=== PATIENT | male | born 1960 | race Caucasian/White ===

== ENCOUNTER 2018-04-01 11:00 | Emergency (ER) | payer OTHER ==
[2018-04-01 11:36] LABS: CREATININE 0.8 mg/dL (0.5-1.5); POTASSIUM 3.4 mmol/L (3.5-5.1)
[2018-04-01 11:41] LABS: ALBUMIN 2.4 g/dL (3.5-5.0); BILIRUBIN,TOTAL 1.6 mg/dL (0.2-1.0); TOTAL PROTEIN, SERUM 6.4 g/dL (6.0-8.3)
[2018-04-01 11:43] LABS: BASOPHILS % (AUTO) 1.1 % (0.0-5.0); EOSINOPHILS % (AUTO) 6.6 % (0.0-8.0); HEMATOCRIT 41.6 % (42-54); LYMPHOCYTES % (AUTO) 22.3 % (21.0-51.0); MEAN CORPUSCULAR HEMOGLOBIN 32.8 pg (27.0-33.0); MEAN CORPUSCULAR HGB CONC 32.8 g/dL (32.0-36.0); MEAN CORPUSCULAR VOLUME 99.8 fL (79-99); MONOCYTES % (AUTO) 13.4 % (3.0-13.0); NEUTROPHILS % (AUTO) 56.6 % (40.0-77.0); NUCLEATED RED BLOOD CELLS 0.2 % (0.0-0.19); PLATELET COUNT (AUTO) 63 K/uL (130-400); RED BLOOD CELL COUNT(AUTO) 4.16 MIL/uL (4.50-6.20); RED CELL DISTRIBUTION WIDTH 14.6 % (11.0-15.5)
[2018-04-01] MEDS ORDERED: IOHEXOL-350 75 ML VIAL IV ONE (11:52)
[2018-04-01 12:10] LABS: BASOPHILS % (MANUAL) 1 % (0-2); EOSINOPHILS % (MANUAL) 9 % (1-6); LYMPHOCYTES % (MANUAL) 17 % (22-44); MAN.DIFF COMMENT-IMPRESSION MANUAL DIFFERENTIAL; MONOCYTES % (MANUAL) 16 % (2-9); SEGMENTED NEUTROPHILS % 57 % (40-70)
[2018-04-01 13:06] LABS: APPEARANCE,URINE Clear (CLEAR); BILIRUBIN,URINE Negative (NEGATIVE); COLOR,URINE Yellow (YELLOW); GLUCOSE, URINE (UA) Negative (NEGATIVE); KETONES,URINE Negative (NEGATIVE); LEUKOCYTE ESTERASE ,URINE Small (NEGATIVE); NITRATE,URINE Negative (NEGATIVE); OCCULT BLOOD,URINE Small (NEGATIVE); PROTEIN,URINE Trace (NEGATIVE)
[2018-04-01] MEDS ORDERED: HYDROCODONE/ACETAMINOPHEN 5/325 MG TAB ONE (13:14)
[2018-04-01 13:16] LABS: BACTERIA,URINE Rare /HPF (None Seen); RBC,URINE 0-1 /HPF (0-1); SQUAMOUS EPITHELIAL CELL,UR Rare /HPF (0-2)
== END 2018-04-01 14:15 | disposition home or self-care (01) ==
LOC: EDH 11:00
DX: K42.9 Umbilical hernia without obstruction or gangrene (principal); K40.90 Unilateral inguinal hernia, without obstruction or gangrene, not specified as recurrent; K74.60 Unspecified cirrhosis of liver; R18.8 Other ascites
CPT/HCPCS: 36415; 74177; 80053; 81001; 85025; 99285; Q9967

== ENCOUNTER → 2018-05-05 | Outpatient (CLI) | payer OTHER | END | disposition home or self-care (01) | LOC: OIH 13:30 | PROVIDERS: ATTEND Family Medicine | DX: M51.36 Other intervertebral disc degeneration, lumbar region (principal); M48.061 Spinal stenosis, lumbar region without neurogenic claudication; M47.896 Other spondylosis, lumbar region; M25.78 Osteophyte, vertebrae | CPT/HCPCS: 72100 ==

== ENCOUNTER 2018-05-08 13:48 | Emergency (ER) | payer OTHER ==
[2018-05-08 15:00] LABS: BASOPHILS % (AUTO) 0.8 % (0.0-5.0); EOSINOPHILS % (AUTO) 4.7 % (0.0-8.0); HEMATOCRIT 36.6 % (42-54); MEAN CORPUSCULAR HEMOGLOBIN 34.5 pg (27.0-33.0); MEAN CORPUSCULAR HGB CONC 34.6 g/dL (32.0-36.0); MEAN CORPUSCULAR VOLUME 99.7 fL (79-99); MONOCYTES % (AUTO) 12.1 % (3.0-13.0); NEUTROPHILS % (AUTO) 62.4 % (40.0-77.0); NUCLEATED RED BLOOD CELLS 0.1 % (0.0-0.19); PLATELET COUNT (AUTO) 73 K/uL (130-400); RED BLOOD CELL COUNT(AUTO) 3.67 MIL/uL (4.50-6.20); RED CELL DISTRIBUTION WIDTH 14.3 % (11.0-15.5); WHITE BLOOD COUNT (AUTO) 3.3 K/uL (4.8-10.8)
[2018-05-08] MEDS ORDERED: ONDANSETRON HCL 4 MG/2 ML VIAL ONE (15:00)
[2018-05-08] MEDS ORDERED: SODIUM CHLORIDE 0.9% 1000ML 1,000 ML IV ONE (15:00)
[2018-05-08] MEDS ORDERED: MORPHINE SULFATE 4 MG/1ML SYG ONE ×2 (15:00→16:25)
[2018-05-08 15:11] LABS: APPEARANCE,URINE Clear (CLEAR); BILIRUBIN,URINE Small (NEGATIVE); COLOR,URINE Dark Yellow (YELLOW); GLUCOSE, URINE (UA) Negative (NEGATIVE); KETONES,URINE Negative (NEGATIVE); LEUKOCYTE ESTERASE ,URINE Trace (NEGATIVE); NITRATE,URINE Negative (NEGATIVE); OCCULT BLOOD,URINE Moderate (NEGATIVE); PH,URINE 5.5 (5.0-8.0); PROTEIN,URINE POS 2+ (NEGATIVE)
[2018-05-08 15:14] LABS: ALBUMIN 2.7 g/dL (3.5-5.0); BILIRUBIN,TOTAL 1.8 mg/dL (0.2-1.0)
[2018-05-08] MEDS ORDERED: IOHEXOL-350 75 ML VIAL IV ONE (15:15)
[2018-05-08 15:25] LABS: BACTERIA,URINE Rare /HPF (None Seen); SQUAMOUS EPITHELIAL CELL,UR Rare /HPF (0-2)
[2018-05-08 15:26] LABS: MUCUS,URINE Few LPF (None Seen)
== END 2018-05-08 18:16 | disposition home or self-care (01) ==
LOC: EEVIPCON 13:48 → EDH 13:48
DX: K42.9 Umbilical hernia without obstruction or gangrene (principal); N43.3 Hydrocele, unspecified; K74.60 Unspecified cirrhosis of liver; G89.29 Other chronic pain; R10.30 Lower abdominal pain, unspecified; Z88.1 Allergy status to other antibiotic agents
CPT/HCPCS: 36415; 74177; 76870; 80053; 81001; 83690; 85025; 96374; 96375; 96376; 99285; J2270 ×2; J2405; J7030; Q9967

== ENCOUNTER 2018-11-27 14:20 | Emergency (ER) | payer OTHER ==
[2018-11-27 15:12] LABS: BASOPHILS % (AUTO) 0.4 % (0.0-5.0); EOSINOPHILS % (AUTO) 1.9 % (0.0-8.0); HEMATOCRIT 28.5 % (42-54); LYMPHOCYTES % (AUTO) 11.1 % (21.0-51.0); MEAN CORPUSCULAR HEMOGLOBIN 32.3 pg (27.0-33.0); MEAN CORPUSCULAR HGB CONC 33.4 g/dL (32.0-36.0); MEAN CORPUSCULAR VOLUME 96.7 fL (79-99); MONOCYTES % (AUTO) 16.1 % (3.0-13.0); NEUTROPHILS % (AUTO) 70.5 % (40.0-77.0); PLATELET COUNT (AUTO) 62 K/uL (130-400); RED BLOOD CELL COUNT(AUTO) 2.95 MIL/uL (4.50-6.20); RED CELL DISTRIBUTION WIDTH 25.1 % (11.0-15.5); WHITE BLOOD COUNT (AUTO) 2.5 K/uL (4.8-10.8)
[2018-11-27 15:24] LABS: CREATININE 1.4 mg/dL (0.5-1.5); POTASSIUM 4.8 mmol/L (3.5-5.1)
[2018-11-27 15:29] LABS: ALBUMIN 3.7 g/dL (3.5-5.0); BILIRUBIN,TOTAL 3.6 mg/dL (0.2-1.0); TOTAL PROTEIN, SERUM 8.2 g/dL (6.0-8.3)
[2018-11-27 15:30] LABS: INR 1.85 (0.85-1.15); PARTIAL THROMBOPLASTIN TIME 41.2 SEC (26.3-35.5); PROTHROMBIN TIME 19.2 SEC (9.6-11.6)
[2018-11-27 15:33] LABS: BAND NEUTROPHILS % (MANUAL) 2 % (0-2); EOSINOPHILS % (MANUAL) 1 % (1-6); LYMPHOCYTES % (MANUAL) 13 % (22-44); MAN.DIFF COMMENT-IMPRESSION MANUAL DIFFERENTIAL; MONOCYTES % (MANUAL) 12 % (2-9); PLATELET MORPHOLOGY COMMENT DECREASED; SEGMENTED NEUTROPHILS % 72 % (40-70)
[2018-11-27] MEDS ORDERED: MORPHINE SULFATE 4 MG/1ML SYG ONE (16:14)
[2018-11-27] MEDS ORDERED: ONDANSETRON HCL 4 MG/2 ML VIAL ONE (16:14)
== END 2018-11-27 18:12 | disposition home or self-care (01) ==
LOC: EDH 14:20
DX: E86.0 Dehydration (principal); R53.1 Weakness; K74.60 Unspecified cirrhosis of liver; Z88.1 Allergy status to other antibiotic agents
CPT/HCPCS: 36415; 70450; 71045; 80053; 82140; 82550; 84484; 85025; 85610; 85730; 93005; 96361; 96374; 96375; 99285; J2270; J2405

== ENCOUNTER 2021-04-27 08:50 | Inpatient (IN) | payer MEDICAID ==
[~2021-04-27] VITALS: Ht 177.8 cm; Wt 83.2 kg
[2021-04-27] MEDS ORDERED: LACTATED RINGERS 1000ML 1,000 ML IV SCH ×2 (09:00→13:00)
[2021-04-27 09:18] LABS: BASOPHILS % (AUTO) 0.6 % (0.0-5.0); EOSINOPHILS % (AUTO) 4.3 % (0.0-8.0); HEMATOCRIT 34.5 % (42-54); MEAN CORPUSCULAR HEMOGLOBIN 31.6 pg (27.0-33.0); MEAN CORPUSCULAR HGB CONC 32.2 g/dL (32.0-36.0); MEAN CORPUSCULAR VOLUME 98.3 fL (79-99); MONOCYTES % (AUTO) 9.4 % (3.0-13.0); NEUTROPHILS % (AUTO) 75.2 % (40.0-77.0); PLATELET COUNT (AUTO) 101 K/uL (130-400); RED BLOOD CELL COUNT(AUTO) 3.51 MIL/uL (4.50-6.20); RED CELL DISTRIBUTION WIDTH 14.9 % (11.0-15.5); WHITE BLOOD COUNT (AUTO) 6.3 K/uL (4.8-10.8)
[2021-04-27] MEDS ORDERED: CEFTRIAXONE 1G VIAL ONE (09:29)
[2021-04-27 09:30] LABS: CREATININE 0.9 mg/dL (0.5-1.5); POTASSIUM 5.7 mmol/L (3.5-5.1)
[2021-04-27] MEDS ORDERED: OCTREOTIDE ACETATE 1,000 MCG in DEXTROSE 5%-WATER 195 ML IV SCH (09:30)
[2021-04-27] MEDS ORDERED: ONDANSETRON 4MG INJ IVP SCH (09:30)
[2021-04-27] MEDS ORDERED: PANTOPRAZOLE 40 MG/VIAL IVP SCH (09:30)
[2021-04-27] MEDS ORDERED: CEFTRIAXONE 1G VIAL 1 GM in 0.9%NACL 50ML 50 ML IV SCH (09:30)
[2021-04-27] MEDS ORDERED: OCTREOTIDE ACETATE 100 MCG/ML AMP IVP SCH (09:30)
[2021-04-27 09:31] LABS: INR 1.36 (0.85-1.15); PROTHROMBIN TIME 14.4 SEC (9.6-11.6)
[2021-04-27 09:32] LABS: PARTIAL THROMBOPLASTIN TIME 26.2 SEC (26.3-35.5)
[2021-04-27 09:34] LABS: ALBUMIN 2.5 g/dL (3.5-5.0); BILIRUBIN,TOTAL 1.5 mg/dL (0.2-1.0); MAGNESIUM 1.8 mg/dL (1.80-2.40); TOTAL PROTEIN, SERUM 6.5 g/dL (6.0-8.3)
[2021-04-27 09:56] LABS: B-TYPE NATRIURETIC PEPTIDE 6 pg/mL (0-100)
[2021-04-27] MEDS: PANTOPRAZOLE 40MG INJ 80 MG in 0.9%NACL 100ML 100 ML IV SCH ×2 (10:43→19:58)
[2021-04-27] MEDS ORDERED: ONDANSETRON 4MG INJ IV PRN (13:00)
[2021-04-27] MEDS ORDERED: CEFTRIAXONE 1G VIAL IVP SCH (13:00)
[2021-04-27] MEDS ORDERED: LACTULOSE 20 GM/30 ML UDCUP PO PRN (13:00)
[2021-04-27] MEDS ORDERED: MAGNESIUM 2GM PREMIX 50ML 50 ML IV PRN (13:00)
[2021-04-27] MEDS ORDERED: METOPROLOL TARTRATE 25 MG TAB PO ONE (13:00)
[2021-04-27] MEDS: MORPHINE 2 MG SYG IV PRN ×2 (13:38→23:30)
[2021-04-27 14:15] LABS: APPEARANCE,URINE Clear (CLEAR); BILIRUBIN,URINE Negative (NEGATIVE); COLOR,URINE Yellow (YELLOW); GLUCOSE, URINE (UA) Negative (NEGATIVE); KETONES,URINE Negative (NEGATIVE); LEUKOCYTE ESTERASE ,URINE Negative (NEGATIVE); NITRATE,URINE Negative (NEGATIVE); OCCULT BLOOD,URINE Small (NEGATIVE); PROTEIN,URINE POS 2+ mg/dL (NEGATIVE)
[2021-04-27 14:22] LABS: AMPHET/METH SCREEN,URINE NEGATIVE (NEGATIVE); BARBITURATE SCREEN, URINE NEGATIVE (NEGATIVE); BENZODIAZEPINES SCREEN,URINE NEGATIVE (NEGATIVE); CANNABINOID SCREEN,URINE NEGATIVE (NEGATIVE); COCAINE SCREEN,URINE POSITIVE (NEGATIVE); OPIATE SCREEN,URINE NEGATIVE (NEGATIVE); PHENCYCLIDINE SCREEN,URINE NEGATIVE (NEGATIVE)
[2021-04-27 14:38] LABS: BACTERIA,URINE Rare /HPF (None Seen); MUCUS,URINE Few LPF (None Seen); SQUAMOUS EPITHELIAL CELL,UR Few /HPF (0-2); WBC,URINE 0-1 /HPF (0-1)
[2021-04-27 14:58] LABS: HEMATOCRIT 31.4 % (42-54)
[2021-04-27] MEDS ORDERED: SPIRONOLACTONE 25 MG TAB PO SCH (15:30)
[2021-04-27] MEDS ORDERED: RIFAXIMIN 550 MG TABLET PO SCH (15:30)
[2021-04-27 15:38] LABS: CREATININE 0.9 mg/dL (0.5-1.5); POTASSIUM 5.8 mmol/L (3.5-5.1)
[2021-04-27] MEDS: LACTULOSE 20 GM/30 ML UDCUP PO ONE ×2 (17:20→17:26)
[2021-04-27] MEDS ORDERED: KAYEXALATE 15GM/60ML PO ONE (18:00)
[2021-04-27 20:59] LABS: HEMATOCRIT 30.1 % (42-54)
[2021-04-27] MEDS: RIFAXIMIN 550 MG TABLET PO SCH (21:00)
[2021-04-27] MEDS ORDERED: METOPROLOL TARTRATE 25 MG TAB PO SCH (21:00)
[2021-04-27] MEDS: LACTULOSE 20 GM/30 ML UDCUP PO SCH (22:23)
[2021-04-27 23:18] LABS: CHLORIDE,URINE RANDOM 140 mmol/L (110-250); CREATININE,URINE RANDOM 73 mg/dL (30-135); POTASSIUM,URINE RANDOM 51 mmol/L (25-125); SODIUM,URINE RANDOM 114 mmol/l (40-220)
[2021-04-28] VITALS (18 sets, daily range): BP systolic 79–130; BP diastolic 50–78
[2021-04-28] MEDS: LACTULOSE 20 GM/30 ML UDCUP PO SCH (06:00)
[2021-04-28 06:30] LABS: BASOPHILS % (AUTO) 1.1 % (0.0-5.0); EOSINOPHILS % (AUTO) 8.4 % (0.0-8.0); LYMPHOCYTES % (AUTO) 16.2 % (21.0-51.0); MEAN CORPUSCULAR HEMOGLOBIN 32.2 pg (27.0-33.0); MEAN CORPUSCULAR HGB CONC 32.5 g/dL (32.0-36.0); MEAN CORPUSCULAR VOLUME 99.1 fL (79-99); MONOCYTES % (AUTO) 9.7 % (3.0-13.0); NEUTROPHILS % (AUTO) 64.2 % (40.0-77.0); PLATELET COUNT (AUTO) 121 K/uL (130-400); RED BLOOD CELL COUNT(AUTO) 3.23 MIL/uL (4.50-6.20); RED CELL DISTRIBUTION WIDTH 15.3 % (11.0-15.5); WHITE BLOOD COUNT (AUTO) 7.6 K/uL (4.8-10.8)
[2021-04-28 06:54] LABS: THYROID STIMULATING HORMONE 0.35 uIU/mL (0.36-3.74); URIC ACID 6.9 mg/dL (2.6-7.2)
[2021-04-28 07:00] LABS: ALBUMIN 2.8 g/dL (3.5-5.0); BILIRUBIN,TOTAL 1.3 mg/dL (0.2-1.0); CREATININE 1.2 mg/dL (0.5-1.5); POTASSIUM 4.6 mmol/L (3.5-5.1); TOTAL PROTEIN, SERUM 6.6 g/dL (6.0-8.3)
[2021-04-28] MEDS ORDERED: LIDOCAINE HCL 1% 20 ML VIAL ONE (08:15)
[2021-04-28] MEDS ORDERED: FENTANYL CITRATE PF 50 MCG/1 ML 2ML VIAL ONE (08:15)
[2021-04-28] MEDS ORDERED: PROPOFOL 10 MG/ML 20ML VIAL IV ONE ×2 (08:15)
[2021-04-28] MEDS ORDERED: PHENYLEPHRINE HCL 10 MG/ML 1ML VIAL IV ONE (08:29)
[2021-04-28] MEDS ORDERED: PANTOPRAZOLE 40MG INJ 80 MG in 0.9%NACL 100ML 100 ML IV SCH (09:00)
[2021-04-28] MEDS ORDERED: SPIRONOLACTONE 25 MG TAB PO SCH (09:00)
[2021-04-28] MEDS: RIFAXIMIN 550 MG TABLET PO SCH (09:26)
[2021-04-28 12:02] LABS: HEMATOCRIT 26.7 % (42-54)
[2021-04-28] MEDS ORDERED: LACT10SO9 PO (12:03)
[2021-04-28] MEDS ORDERED: SPIR25TA6 PO (12:03)
== END 2021-04-28 13:30 | disposition home or self-care (01) | DRG 253 ==
LOC: EDH 08:50 → EDHIP 08:51 → 3CH 04-28 02:23
PROVIDERS: ADMIT Internal Medicine; ATTEND Internal Medicine
PROC: 0DJ08ZZ Inspection of Upper Intestinal Tract, Via Natural or Artificial Opening Endoscopic (ICD-10-PCS; principal; 2021-04-28)
DX: K92.2 Gastrointestinal hemorrhage, unspecified (principal); N17.9 Acute kidney failure, unspecified; K76.6 Portal hypertension; E83.42 Hypomagnesemia; E87.5 Hyperkalemia; D62 Acute posthemorrhagic anemia; K74.60 Unspecified cirrhosis of liver; K31.89 Other diseases of stomach and duodenum; F14.90 Cocaine use, unspecified, uncomplicated; F12.90 Cannabis use, unspecified, uncomplicated; G89.29 Other chronic pain; Z79.899 Other long term (current) drug therapy; Z82.49 Family history of ischemic heart disease and other diseases of the circulatory system; Z82.0 Family history of epilepsy and other diseases of the nervous system; Z83.3 Family history of diabetes mellitus; Z82.5 Family history of asthma and other chronic lower respiratory diseases; Z80.9 Family history of malignant neoplasm, unspecified; Z82.3 Family history of stroke; Z20.822 Contact with and (suspected) exposure to COVID-19
CPT/HCPCS: 36415; 43235; 76870; 80048; 80053; 80305; 81001; 82140; 82270; 82436; 82570; 83605; 83735; 83880; 83935; 84132; 84133; 84300; 84443; 84550; 85014; 85018; 85025; 85610; 85730; 86850; 86900; 86901; 87635; 93005; A4606; C9113; G0378; J0696; J2354; J2370; J2405; J2704; J3010; J3475; J7030; J7060

== ENCOUNTER → 2022-09-09 | Outpatient (CLI) | payer MEDICAID ==
[~2022-09-09] MED LIST: LACT10SO9 PO; SPIR25TA6 PO
== END | disposition home or self-care (01) ==
LOC: RAH 08-27 09:16
PROVIDERS: ATTEND Internal Medicine Gastroenterology
DX: K70.31 Alcoholic cirrhosis of liver with ascites (principal); K80.20 Calculus of gallbladder without cholecystitis without obstruction
CPT/HCPCS: 76700; 93975

== ENCOUNTER 2022-10-22 13:08 | Observation (INO) | payer MEDICAID ==
[~2022-10-22] VITALS: Ht 177.8 cm; Wt 86.9 kg
[2022-10-22] MEDS ORDERED: LIDOCAINE HCL 1% 20 ML VIAL ONE (15:29)
[2022-10-22] MEDS ORDERED: SODIUM BICARB 50MEQ 50ML VIAL 50 ML ONE (15:29)
[2022-10-22] MEDS ORDERED: ALBUMIN (HUMAN) 25% 200 ML IV ONE (15:29)
[2022-10-22 16:56] LABS: BASOPHILS % (AUTO) 0.4 % (0.0-5.0); EOSINOPHILS % (AUTO) 1.1 % (0.0-8.0); HEMATOCRIT 28.8 % (42-54); LYMPHOCYTES % (AUTO) 4.7 % (21.0-51.0); MEAN CORPUSCULAR VOLUME 90.9 fL (79-99); MONOCYTES % (AUTO) 19.6 % (3.0-13.0); NEUTROPHILS % (AUTO) 73.7 % (40.0-77.0); PLATELET COUNT (AUTO) 105 K/uL (130-400); RED BLOOD CELL COUNT(AUTO) 3.17 MIL/uL (4.50-6.20); RED CELL DISTRIBUTION WIDTH 14.6 % (11.0-15.5); WHITE BLOOD COUNT (AUTO) 5.6 K/uL (4.8-10.8)
[2022-10-22 17:04] LABS: BODY FLUID RBC 9769 /cu. mm.; BODY FLUID WBC 400 /cu. mm.
[2022-10-22 17:05] LABS: APPEARANCE BODY FLUID CLOUDY (CLEAR); COLOR,BODY FLUID RED (LT YELLOW); SPECIMENTYPE,BODY FLUID ASCITES; TOTAL VOLUME,BODY FLUID 9000 mL
[2022-10-22 17:07] LABS: INR 1.56 (0.85-1.15); PROTHROMBIN TIME 16.6 SEC (9.6-11.6)
[2022-10-22 17:09] LABS: PARTIAL THROMBOPLASTIN TIME 34.8 SEC (26.3-35.5)
[2022-10-22 17:10] LABS: ALBUMIN 2.2 g/dL (3.5-5.0); CREATININE 1.2 mg/dL (0.5-1.5)
[2022-10-22 17:13] LABS: POTASSIUM 2.6 mmol/L (3.5-5.1)
[2022-10-22 17:23] LABS: BF LYMPHOCYTE 3 %; BF MONOCYTE 11 %
[2022-10-22] MEDS ORDERED: POTASSIUM CHLORIDE 10MEQ/100ML 10 MEQ/100 ML ML IV SCH (17:30)
[2022-10-22] MEDS ORDERED: POTASSIUM BICARB/CIT AC 25 MEQ TABLET.EFF PO ONE (17:30)
[2022-10-22] MEDS ORDERED: MORPHINE 2 MG SYG IV PRN (18:30)
[2022-10-22] MEDS ORDERED: POTASSIUM CHLORIDE 20MEQ/100ML 100 ML IV PRN (18:30)
[2022-10-22] MEDS ORDERED: ACETAMINOPHEN 325 MG TAB PO PRN ×2 (18:30)
[2022-10-22] MEDS ORDERED: LIDOCAINE HCL-MPF 1% 2ML VIAL IV PRN (18:30)
[2022-10-22] MEDS ORDERED: ONDANSETRON 4MG INJ IV PRN (18:30)
[2022-10-22] MEDS ORDERED: MAGNESIUM 2GM PREMIX 50ML 50 ML IV PRN (18:30)
[2022-10-22] MEDS ORDERED: KCL 20 MEQ ERTAB PO PRN (18:30)
[2022-10-22] MEDS: LACTULOSE 20 GM/30 ML UDCUP PO SCH (21:00)
[2022-10-22 21:44] LABS: APPEARANCE,URINE CLEAR (CLEAR); BILIRUBIN,URINE 0.5 mg/dL (NEGATIVE); COLOR,URINE YELLOW (YELLOW); GLUCOSE, URINE (UA) NEGATIVE (NEGATIVE); KETONES,URINE NEGATIVE (NEGATIVE); LEUKOCYTE ESTERASE ,URINE NEGATIVE Leu/uL (NEGATIVE); NITRATE,URINE NEGATIVE (NEGATIVE); OCCULT BLOOD,URINE MODERATE (NEGATIVE); PROTEIN,URINE 50 mg/dL (NEGATIVE)
[2022-10-22 21:59] LABS: BACTERIA,URINE RARE /HPF (None Seen); HYALINE CASTS, URINE 26-50 /LPF (0-1 /LPF); MUCUS,URINE RARE LPF (None Seen); SQUAMOUS EPITHELIAL CELL,UR RARE /HPF (0-2); YEAST,URINE BUDDING FEW /HPF (None Seen)
[2022-10-22 22:25] VITALS: BP 128/98
[2022-10-22] MEDS ORDERED: FURO40TA5 PO (22:31)
[2022-10-22] MEDS ORDERED: LACT10SO9 PO (22:31)
[2022-10-22] MEDS ORDERED: RIFA550T PO (22:31)
[2022-10-22] MEDS: POTASSIUM CHLORIDE 10% ELIXIR 20 MEQ/15 ML UDCUP PO PRN ×2 (22:51→23:03)
[2022-10-22] MEDS: MORPHINE 4 MG SYG IV PRN (23:03)
[2022-10-23] MEDS: MORPHINE 4 MG SYG IV PRN (03:25)
[2022-10-23 03:40] VITALS: BP 132/69
[2022-10-23 05:14] LABS: BASOPHILS % (AUTO) 0.4 % (0.0-5.0); EOSINOPHILS % (AUTO) 3.2 % (0.0-8.0); HEMATOCRIT 37.7 % (42-54); LYMPHOCYTES % (AUTO) 8.7 % (21.0-51.0); MEAN CORPUSCULAR HEMOGLOBIN 30.1 pg (27.0-33.0); MEAN CORPUSCULAR HGB CONC 32.9 g/dL (32.0-36.0); MEAN CORPUSCULAR VOLUME 91.5 fL (79-99); MONOCYTES % (AUTO) 17.3 % (3.0-13.0); NEUTROPHILS % (AUTO) 68.9 % (40.0-77.0); PLATELET COUNT (AUTO) 182 K/uL (130-400); RED BLOOD CELL COUNT(AUTO) 4.12 MIL/uL (4.50-6.20); RED CELL DISTRIBUTION WIDTH 14.9 % (11.0-15.5); WHITE BLOOD COUNT (AUTO) 6.9 K/uL (4.8-10.8)
[2022-10-23 05:27] LABS: CREATININE 1.1 mg/dL (0.5-1.5); MAGNESIUM 2.4 mg/dL (1.80-2.40); PHOSPHORUS 2.1 mg/dL (2.5-4.9); POTASSIUM 4.2 mmol/L (3.5-5.1)
[2022-10-23 07:10] VITALS: BP 113/69
[2022-10-23] MEDS ORDERED: ACYCLOVIR OINTMENT 30GM TP SCH (09:00)
[2022-10-23] MEDS: LACTULOSE 20 GM/30 ML UDCUP PO SCH (09:00)
[2022-10-23] MEDS ORDERED: FAMOTIDINE 20MG TAB PO SCH (09:00)
[2022-10-23] MEDS ORDERED: ACYC15OI7 TP (09:14)
== END 2022-10-23 11:50 | disposition home or self-care (01) ==
LOC: EDH 13:08 → INTOOBSV 13:09 → EDHIP 13:09 → 4BH 22:10
PROVIDERS: ADMIT Internal Medicine; ATTEND Internal Medicine
DX: E87.6 Hypokalemia (principal); Z20.822 Contact with and (suspected) exposure to COVID-19; K70.30 Alcoholic cirrhosis of liver without ascites; D64.9 Anemia, unspecified; E11.9 Type 2 diabetes mellitus without complications; E87.1 Hypo-osmolality and hyponatremia; B02.9 Zoster without complications; E43 Unspecified severe protein-calorie malnutrition; E66.9 Obesity, unspecified; F14.90 Cocaine use, unspecified, uncomplicated; R23.8 Other skin changes; Z51.5 Encounter for palliative care; Z79.899 Other long term (current) drug therapy
CPT/HCPCS: 49083; 99284; 96365; 96367; 96366 ×2; 96375; 87635; 83735 ×2; 80053; 82140; 83690; 85025 ×2; 89051; 85610; 85730; 87040 ×2; 87205; 81001; 36415 ×2; 96376 ×2; 84132; 87071; 84100; 80048; P9046; J3475; J3490; J2405; J2270 ×2; C1729; G0378

== ENCOUNTER 2022-11-28 17:04 | Inpatient (IN) | payer MEDICAID ==
[~2022-11-28] VITALS: Ht 177.8 cm; Wt 103.6 kg
[~2022-11-28 17:04] MED LIST changes: +ACYC15OI7 TP; +FURO40TA5 PO; +RIFA550T PO
[2022-11-28 18:30] LABS: BASOPHILS % (AUTO) 1.4 % (0.0-5.0); EOSINOPHILS % (AUTO) 6.9 % (0.0-8.0); HEMATOCRIT 34.3 % (42-54); LYMPHOCYTES % (AUTO) 11.7 % (21.0-51.0); MEAN CORPUSCULAR HEMOGLOBIN 29.4 pg (27.0-33.0); MEAN CORPUSCULAR HGB CONC 32.1 g/dL (32.0-36.0); MEAN CORPUSCULAR VOLUME 91.7 fL (79-99); NEUTROPHILS % (AUTO) 67.7 % (40.0-77.0); PLATELET COUNT (AUTO) 74 K/uL (130-400); RED BLOOD CELL COUNT(AUTO) 3.74 MIL/uL (4.50-6.20); RED CELL DISTRIBUTION WIDTH 17.3 % (11.0-15.5); WHITE BLOOD COUNT (AUTO) 3.5 K/uL (4.8-10.8)
[2022-11-28 18:40] LABS: INR 1.31 (0.85-1.15); PROTHROMBIN TIME 14.1 SEC (9.6-11.6)
[2022-11-28 18:45] LABS: CREATININE 1.1 mg/dL (0.5-1.5); POTASSIUM 3.1 mmol/L (3.5-5.1)
[2022-11-28 18:53] LABS: B-TYPE NATRIURETIC PEPTIDE 66 pg/mL (0-100)
[2022-11-28 18:56] LABS: ALBUMIN 2.3 g/dL (3.5-5.0); TOTAL PROTEIN, SERUM 6.9 g/dL (6.0-8.3)
[2022-11-28] MEDS ORDERED: LACTULOSE 20 GM/30 ML UDCUP PO PRN (19:30)
[2022-11-28] MEDS ORDERED: ONDANSETRON 4MG INJ IV PRN (19:30)
[2022-11-28] MEDS ORDERED: KCL 20 MEQ ERTAB PO ONE (19:30)
[2022-11-28] MEDS: FUROSEMIDE 40MG VIAL IV SCH (20:13)
[2022-11-28] MEDS: MORPHINE 2 MG SYG IVP PRN (20:15)
[2022-11-28] MEDS: PANTOPRAZOLE 40 MG TAB DR PO SCH (21:17)
[2022-11-28 21:50] VITALS: BP 121/61
[2022-11-29] VITALS: BP 143/92
[2022-11-29] MEDS: MORPHINE 2 MG SYG IVP PRN ×2 (02:49→20:15)
[2022-11-29 04:00] VITALS: BP 154/78
[2022-11-29 08:00] VITALS: BP 139/77
[2022-11-29] MEDS ORDERED: POTASSIUM CHLORIDE 10% ELIXIR 20 MEQ/15 ML UDCUP PO PRN (08:00)
[2022-11-29] MEDS ORDERED: POTASSIUM CHLORIDE 20MEQ/100ML 100 ML IV PRN (08:00)
[2022-11-29] MEDS: FUROSEMIDE 40MG VIAL IV SCH ×2 (08:15→20:15)
[2022-11-29] MEDS: PANTOPRAZOLE 40 MG TAB DR PO SCH ×3 (08:15→20:30)
[2022-11-29] MEDS ORDERED: ALBUMIN (HUMAN) 25% 200 ML IV SCH (10:00)
[2022-11-29 11:14] LABS: MAGNESIUM 1.5 mg/dL (1.80-2.40); POTASSIUM 3.7 mmol/L (3.5-5.1)
[2022-11-29] MEDS: KCL 20 MEQ ERTAB PO PRN (11:18)
[2022-11-29] MEDS: MAGNESIUM 2GM PREMIX 50ML 50 ML IV PRN (11:19)
[2022-11-29 11:36] VITALS: BP 118/64
[2022-11-29] MEDS ORDERED: ALBUMIN (HUMAN) 25% 300 ML IV SCH (12:00)
[2022-11-29 14:33] LABS: BODY FLUID RBC 895 /cu. mm.; BODY FLUID WBC 50 /cu. mm.
[2022-11-29 14:37] LABS: APPEARANCE BODY FLUID CLOUDY (CLEAR); COLOR,BODY FLUID YELLOW (LT YELLOW); SPECIMENTYPE,BODY FLUID ASCITES
[2022-11-29 14:38] LABS: TOTAL VOLUME,BODY FLUID 13000 mL
[2022-11-29 16:00] VITALS: BP 126/74
[2022-11-29 16:47] LABS: BF LYMPHOCYTE 45 %; BF MONOCYTE 13 %
[2022-11-29 20:00] VITALS: BP 134/78
[2022-11-30] VITALS (7 sets, daily range): BP systolic 107–131; BP diastolic 69–87
[2022-11-30] MEDS: MORPHINE 2 MG SYG IVP PRN ×2 (01:41→10:30)
[2022-11-30] MEDS: FUROSEMIDE 40MG VIAL IV SCH ×2 (07:08→19:39)
[2022-11-30] MEDS: PANTOPRAZOLE 40 MG TAB DR PO SCH ×2 (09:00→19:39)
[2022-11-30 09:15] LABS: HEMATOCRIT 25.5 % (42-54); MEAN CORPUSCULAR HGB CONC 32.2 g/dL (32.0-36.0); MEAN CORPUSCULAR VOLUME 93.4 fL (79-99); PLATELET COUNT (AUTO) 67 K/uL (130-400); RED BLOOD CELL COUNT(AUTO) 2.73 MIL/uL (4.50-6.20); RED CELL DISTRIBUTION WIDTH 17.8 % (11.0-15.5); WHITE BLOOD COUNT (AUTO) 4.1 K/uL (4.8-10.8)
[2022-11-30 09:24] LABS: POTASSIUM 3.6 mmol/L (3.5-5.1)
[2022-11-30 09:29] LABS: ALBUMIN 2.4 g/dL (3.5-5.0); MAGNESIUM 1.7 mg/dL (1.80-2.40); TOTAL PROTEIN, SERUM 5.6 g/dL (6.0-8.3)
[2022-11-30 10:26] LABS: BAND NEUTROPHILS % (MANUAL) 3 % (0-2); BASOPHILS % (MANUAL) 3 % (0-2); EOSINOPHILS % (MANUAL) 6 % (1-6); LYMPHOCYTES % (MANUAL) 7 % (22-44); MONOCYTES % (MANUAL) 7 % (2-9); SEGMENTED NEUTROPHILS % 74 % (40-70)
[2022-11-30 10:27] LABS: MAN.DIFF COMMENT-IMPRESSION MANUAL DIFFERENTIAL; PLATELET MORPHOLOGY COMMENT DECREASED
[2022-12-01 04:00] VITALS: BP 107/69
[2022-12-01] MEDS: MORPHINE 2 MG SYG IVP PRN ×3 (04:39→20:59)
[2022-12-01] MEDS: FUROSEMIDE 40MG VIAL IV SCH ×2 (06:51→21:03)
[2022-12-01 07:58] VITALS: BP 127/72
[2022-12-01] MEDS: PANTOPRAZOLE 40 MG TAB DR PO SCH ×2 (09:00→21:02)
[2022-12-01 12:00] VITALS: BP 129/81
[2022-12-01 16:00] VITALS: BP 127/83
[2022-12-01 19:00] VITALS: BP 123/78
[2022-12-01 23:49] VITALS: BP 159/79
[2022-12-02] MEDS: MORPHINE 2 MG SYG IVP PRN ×2 (01:38→06:53)
[2022-12-02 04:39] VITALS: BP 125/73
[2022-12-02 05:40] LABS: MAGNESIUM 1.9 mg/dL (1.80-2.40); POTASSIUM 3.3 mmol/L (3.5-5.1)
[2022-12-02] MEDS: KCL 20 MEQ ERTAB PO PRN ×2 (06:56→09:14)
[2022-12-02] MEDS: MAGNESIUM 2GM PREMIX 50ML 50 ML IV PRN (06:57)
[2022-12-02 07:27] LABS: BASOPHILS % (AUTO) 1.4 % (0.0-5.0); EOSINOPHILS % (AUTO) 9.7 % (0.0-8.0); HEMATOCRIT 22.8 % (42-54); LYMPHOCYTES % (AUTO) 13.1 % (21.0-51.0); MEAN CORPUSCULAR HEMOGLOBIN 30.3 pg (27.0-33.0); MEAN CORPUSCULAR VOLUME 94.6 fL (79-99); NEUTROPHILS % (AUTO) 59.5 % (40.0-77.0); PLATELET COUNT (AUTO) 69 K/uL (130-400); RED BLOOD CELL COUNT(AUTO) 2.41 MIL/uL (4.50-6.20); RED CELL DISTRIBUTION WIDTH 18.7 % (11.0-15.5); WHITE BLOOD COUNT (AUTO) 3.5 K/uL (4.8-10.8)
[2022-12-02 08:00] VITALS: BP 125/76
[2022-12-02] MEDS: PANTOPRAZOLE 40 MG TAB DR PO SCH (09:14)
[2022-12-02] MEDS: FUROSEMIDE 40MG VIAL IV SCH (09:14)
== END 2022-12-02 11:20 | disposition home or self-care (01) | DRG 280 ==
LOC: EDH 17:04 → EDHIP 17:05 → 3BH 21:47
PROVIDERS: ADMIT Hospitalist; ATTEND Hospitalist
DX: K70.31 Alcoholic cirrhosis of liver with ascites (principal); D64.9 Anemia, unspecified; N49.2 Inflammatory disorders of scrotum; N50.89 Other specified disorders of the male genital organs; E87.6 Hypokalemia; E11.9 Type 2 diabetes mellitus without complications; R60.1 Generalized edema; Z91.199 Patient's noncompliance with other medical treatment and regimen due to unspecified reason; R14.0 Abdominal distension (gaseous); R60.0 Localized edema
CPT/HCPCS: 36415; 49083; 71045; 80053; 82140; 82550; 83735; 83874; 83880; 84132; 84484; 85025; 85610; 85730; 87071; 87205; 89051; 99291; C1729; G0378; J1940; J2405; J3475; P9046

== ENCOUNTER 2022-12-09 10:10 | Emergency (ER) | payer MEDICAID ==
[~2022-12-09] VITALS: Ht 177.8 cm; Wt 86.2 kg
[~2022-12-09 10:10] MED LIST changes: -ACYC15OI7 TP
[2022-12-09 10:33] LABS: BASOPHILS % (AUTO) 1.1 % (0.0-5.0); EOSINOPHILS % (AUTO) 6.1 % (0.0-8.0); HEMATOCRIT 25.6 % (42-54); LYMPHOCYTES % (AUTO) 7.6 % (21.0-51.0); MEAN CORPUSCULAR HGB CONC 32.4 g/dL (32.0-36.0); MEAN CORPUSCULAR VOLUME 92.4 fL (79-99); NEUTROPHILS % (AUTO) 71.8 % (40.0-77.0); PLATELET COUNT (AUTO) 79 K/uL (130-400); RED BLOOD CELL COUNT(AUTO) 2.77 MIL/uL (4.50-6.20); WHITE BLOOD COUNT (AUTO) 2.8 K/uL (4.8-10.8)
[2022-12-09 10:45] LABS: CARBON DIOXIDE 32 mmol/L (21-32); CHLORIDE 102 mmol/L (101-111); CREATININE 1.1 mg/dL (0.5-1.5); GLOMERULAR FILTR. RATE CALC 77 mL/min (>90); GLUCOSE,RANDOM 132 mg/dL (70-105); POTASSIUM 3.1 mmol/L (3.5-5.1); SODIUM SERUM 138 mmol/L (136-145); UREA NITROGEN, BLOOD 24 mg/dL (7-18)
[2022-12-09 10:47] LABS: INR 1.27 (0.85-1.15); PROTHROMBIN TIME 13.7 SEC (9.6-11.6)
[2022-12-09] MEDS ORDERED: LIDOCAINE HCL 1% 20 ML VIAL ONE (10:48)
[2022-12-09] MEDS ORDERED: SODIUM BICARB 50MEQ 50ML VIAL 50 ML ONE (10:48)
[2022-12-09 10:49] LABS: PARTIAL THROMBOPLASTIN TIME 28.8 SEC (26.3-35.5)
[2022-12-09] MEDS ORDERED: ALBUMIN (HUMAN) 25% 300 ML IV ONE (10:49)
[2022-12-09 10:50] LABS: ALANINE AMINOTRANSFERASE 27 U/L (12-78); ALBUMIN 2.5 g/dL (3.5-5.0); ASPARTATE AMINOTRANSFERASE 45 U/L (10-37); TOTAL PROTEIN, SERUM 6.5 g/dL (6.0-8.3)
[2022-12-09 10:54] LABS: EOSINOPHILS % (MANUAL) 1 % (1-6); LYMPHOCYTES % (MANUAL) 6 % (22-44); MONOCYTES % (MANUAL) 14 % (2-9); SEGMENTED NEUTROPHILS % 79 % (40-70)
[2022-12-09 10:55] LABS: MAN.DIFF COMMENT-IMPRESSION MANUAL DIFFERENTIAL; PLATELET MORPHOLOGY COMMENT DECREASED
[2022-12-09 16:40] VITALS: BP 124/80
== END 2022-12-09 16:27 | disposition home or self-care (01) ==
LOC: EDH 10:10
DX: R18.8 Other ascites (principal); F17.200 Nicotine dependence, unspecified, uncomplicated; Z79.899 Other long term (current) drug therapy; Z98.890 Other specified postprocedural states
CPT/HCPCS: 49083; 99285; 96365; 71045; 84484; 80053; 85025; 85610; 85730; 36415; P9046; J3490; C1729

== ENCOUNTER → 2022-12-20 | Outpatient (CLI) | payer MEDICAID ==
[~2022-12-20] MED LIST changes: +ALBUMIN (HUMAN) 25% 100 ML IV SCH; +ALBUMIN (HUMAN) 25% 200 ML IV SCH
[2022-12-20 09:06] LABS: BASOPHILS % (AUTO) 1.2 % (0.0-5.0); EOSINOPHILS % (AUTO) 9.3 % (0.0-8.0); HEMATOCRIT 26.2 % (42-54); LYMPHOCYTES % (AUTO) 10.5 % (21.0-51.0); MEAN CORPUSCULAR HEMOGLOBIN 29.2 pg (27.0-33.0); MEAN CORPUSCULAR HGB CONC 30.5 g/dL (32.0-36.0); MEAN CORPUSCULAR VOLUME 95.6 fL (79-99); MONOCYTES % (AUTO) 16.1 % (3.0-13.0); NEUTROPHILS % (AUTO) 62.9 % (40.0-77.0); PLATELET COUNT (AUTO) 57 K/uL (130-400); RED BLOOD CELL COUNT(AUTO) 2.74 MIL/uL (4.50-6.20); RED CELL DISTRIBUTION WIDTH 17.3 % (11.0-15.5); WHITE BLOOD COUNT (AUTO) 2.5 K/uL (4.8-10.8)
[2022-12-20 09:16] LABS: INR 1.3 (0.85-1.15)
[2022-12-20 09:18] LABS: PARTIAL THROMBOPLASTIN TIME 28.1 SEC (26.3-35.5)
[2022-12-20 09:19] LABS: ALBUMIN 2.7 g/dL (3.5-5.0); CREATININE 1.1 mg/dL (0.5-1.5); TOTAL PROTEIN, SERUM 6.6 g/dL (6.0-8.3)
[2022-12-20 10:29] LABS: EOSINOPHILS % (MANUAL) 5 % (1-6); LYMPHOCYTES % (MANUAL) 20 % (22-44); MAN.DIFF COMMENT-IMPRESSION MANUAL DIFFERENTIAL; MONOCYTES % (MANUAL) 3 % (2-9); PLATELET MORPHOLOGY COMMENT DECREASED; SEGMENTED NEUTROPHILS % 72 % (40-70)
[2022-12-20 13:15] LABS: APPEARANCE BODY FLUID CLOUDY (CLEAR); COLOR,BODY FLUID PINK (LT YELLOW); SPECIMENTYPE,BODY FLUID ASCITES
[2022-12-20 13:16] LABS: TOTAL VOLUME,BODY FLUID 15000 mL
[2022-12-20 14:23] LABS: BODY FLUID RBC 5240 /cu. mm.; BODY FLUID WBC 215 /cu. mm.
[2022-12-20 14:40] LABS: BF EOSINOPHIL 7 %; BF LYMPHOCYTE 49 %; BF MONOCYTE 29 %
== END | disposition home or self-care (01) ==
LOC: RAH 12-18 08:04
PROVIDERS: ATTEND Internal Medicine Gastroenterology
DX: K70.31 Alcoholic cirrhosis of liver with ascites (principal); D64.9 Anemia, unspecified; E11.9 Type 2 diabetes mellitus without complications; F17.200 Nicotine dependence, unspecified, uncomplicated; Z79.01 Long term (current) use of anticoagulants
CPT/HCPCS: 49083; 80053; 85025; 89051; 85610; 85730; 87071; 87205; 82105; 36415; C1729; 96365; P9046

== ENCOUNTER → 2023-01-09 | Outpatient (CLI) | payer MEDICAID ==
[~2023-01-09] MED LIST changes: -ALBUMIN (HUMAN) 25% 100 ML IV SCH
[2023-01-09 12:01] LABS: SPECIMENTYPE,BODY FLUID ASCITES; TOTAL VOLUME,BODY FLUID 15000 mL
[2023-01-09 12:38] LABS: BODY FLUID RBC 10756 /cu. mm.; BODY FLUID WBC 81 /cu. mm.
[2023-01-09 12:45] LABS: APPEARANCE BODY FLUID TURBID (CLEAR); COLOR,BODY FLUID PINK (LT YELLOW)
[2023-01-09 13:11] LABS: BF EOSINOPHIL 5 %; BF LYMPHOCYTE 39 %; BF MESOTHELIAL 40 %; BF MONOCYTE 11 %
== END | disposition home or self-care (01) ==
LOC: RAH 10:11
PROVIDERS: ATTEND Internal Medicine Gastroenterology
DX: K70.31 Alcoholic cirrhosis of liver with ascites (principal); K21.9 Gastro-esophageal reflux disease without esophagitis; M19.90 Unspecified osteoarthritis, unspecified site; M81.0 Age-related osteoporosis without current pathological fracture; F17.200 Nicotine dependence, unspecified, uncomplicated; D64.9 Anemia, unspecified; Z79.01 Long term (current) use of anticoagulants; Z79.899 Other long term (current) drug therapy
CPT/HCPCS: 49083; 89051; 87071; 87205; P9046 ×2; C1729; 96365

== ENCOUNTER → 2023-01-16 | Outpatient (CLI) | payer MEDICAID ==
[2023-01-16 14:08] LABS: BODY FLUID RBC 30069 /cu. mm.; BODY FLUID WBC 2334 /cu. mm.
[2023-01-16 14:28] LABS: BF LYMPHOCYTE 2 %; BF MESOTHELIAL 19 %; BF MONOCYTE 3 %
[2023-01-16 14:30] LABS: APPEARANCE BODY FLUID TURBID (CLEAR); COLOR,BODY FLUID ORANGE (LT YELLOW); SPECIMENTYPE,BODY FLUID ASCITES
[2023-01-16 14:31] LABS: TOTAL VOLUME,BODY FLUID 15100 mL
== END | disposition home or self-care (01) ==
LOC: RAH 08:29
PROVIDERS: ATTEND Internal Medicine Gastroenterology
DX: K70.31 Alcoholic cirrhosis of liver with ascites (principal); K21.9 Gastro-esophageal reflux disease without esophagitis; M19.90 Unspecified osteoarthritis, unspecified site; M81.0 Age-related osteoporosis without current pathological fracture; I85.00 Esophageal varices without bleeding; K42.9 Umbilical hernia without obstruction or gangrene; Z79.01 Long term (current) use of anticoagulants; Z79.899 Other long term (current) drug therapy
CPT/HCPCS: 49083; 89051; P9046; C1729; 96365

== ENCOUNTER → 2023-01-23 | Outpatient (CLI) | payer MEDICAID ==
[~2023-01-23] MED LIST changes: -FURO40TA5 PO; -LACT10SO9 PO; -SPIR25TA6 PO
[2023-01-23 14:05] LABS: APPEARANCE BODY FLUID CLOUDY (CLEAR); COLOR,BODY FLUID ORANGE (LT YELLOW); SPECIMENTYPE,BODY FLUID ASCITES; TOTAL VOLUME,BODY FLUID 9600 mL
[2023-01-23 14:19] LABS: BODY FLUID RBC 9255 /cu. mm.; BODY FLUID WBC 2558 /cu. mm.
[2023-01-23 14:23] LABS: BF EOSINOPHIL 1 %; BF LYMPHOCYTE 6 %; BF MESOTHELIAL 1 %; BF MONOCYTE 2 %
== END ==
LOC: RAH 09:54
PROVIDERS: ATTEND Internal Medicine Gastroenterology
DX: R18.8 Other ascites (principal); Z88.1 Allergy status to other antibiotic agents; Z79.899 Other long term (current) drug therapy; Z87.891 Personal history of nicotine dependence; Z72.89 Other problems related to lifestyle
CPT/HCPCS: 49083; 96365; 89051; P9046; C1729

== ENCOUNTER → 2023-01-30 | Outpatient (CLI) | payer MEDICAID ==
[2023-01-30 14:50] LABS: BODY FLUID RBC 354660 /cu. mm.; BODY FLUID WBC 1680 /cu. mm.
[2023-01-30 16:06] LABS: BF EOSINOPHIL 1 %; BF LYMPHOCYTE 7 %; BF MONOCYTE 2 %
[2023-01-30 16:10] LABS: APPEARANCE BODY FLUID BLOODY (CLEAR); SPECIMENTYPE,BODY FLUID ASCITES
[2023-01-30 16:11] LABS: COLOR,BODY FLUID RED (LT YELLOW); TOTAL VOLUME,BODY FLUID 7100 mL
== END | disposition home or self-care (01) ==
LOC: RAH 11:49
PROVIDERS: ATTEND Internal Medicine Gastroenterology
DX: R18.8 Other ascites (principal); M81.0 Age-related osteoporosis without current pathological fracture; K21.9 Gastro-esophageal reflux disease without esophagitis; E11.9 Type 2 diabetes mellitus without complications; M19.90 Unspecified osteoarthritis, unspecified site; Z79.01 Long term (current) use of anticoagulants; Z88.1 Allergy status to other antibiotic agents; Z79.899 Other long term (current) drug therapy; Z87.891 Personal history of nicotine dependence
CPT/HCPCS: 49083; 96365; 89051; P9046; C1729

== ENCOUNTER → 2023-02-19 | Outpatient (CLI) | payer MEDICAID ==
[2023-02-19 13:36] LABS: APPEARANCE BODY FLUID SLIGHTLY CLOUDY (CLEAR); COLOR,BODY FLUID ORANGE (LT YELLOW); SPECIMENTYPE,BODY FLUID ASCITES; TOTAL VOLUME,BODY FLUID 7000 mL
[2023-02-19 13:41] LABS: BODY FLUID RBC 7412 /cu. mm.; BODY FLUID WBC 349 /cu. mm.
[2023-02-19 15:17] LABS: BF LYMPHOCYTE 8 %; BF MACROPHAGE 22; BF MONOCYTE 2 %; BF TOTAL CELLS COUNTED 100
== END | disposition home or self-care (01) ==
LOC: RAH 10:21
PROVIDERS: ATTEND Internal Medicine Gastroenterology
DX: K70.31 Alcoholic cirrhosis of liver with ascites (principal); M81.0 Age-related osteoporosis without current pathological fracture; K21.9 Gastro-esophageal reflux disease without esophagitis; E11.9 Type 2 diabetes mellitus without complications; M19.90 Unspecified osteoarthritis, unspecified site; Z79.899 Other long term (current) drug therapy; Z98.890 Other specified postprocedural states; Z87.891 Personal history of nicotine dependence; Z79.01 Long term (current) use of anticoagulants
CPT/HCPCS: 49083; 89051; C1729

== ENCOUNTER → 2023-02-26 | Outpatient (CLI) | payer MEDICAID ==
[2023-02-26 10:45] LABS: BASOPHILS # (AUTO) 0.04 K/uL (0.00-0.20); BASOPHILS % (AUTO) 0.7 % (0.0-5.0); EOSINOPHILS # (AUTO) 0.25 K/uL (0.00-0.70); EOSINOPHILS % (AUTO) 4.1 % (0.0-8.0); HEMATOCRIT 24.1 % (42-54); IMMATURE GRANULOCYTE ABSOLUTE 0.04 K/uL (0-1); LYMPHOCYTES # (AUTO) 0.5 K/uL (1.0-4.8); LYMPHOCYTES % (AUTO) 8.1 % (21.0-51.0); MEAN CORPUSCULAR HEMOGLOBIN 25.3 pg (27.0-33.0); MEAN CORPUSCULAR HGB CONC 30.3 g/dL (32.0-36.0); MEAN CORPUSCULAR VOLUME 83.4 fL (79-99); MONOCYTES # (AUTO) 0.8 K/uL (0.1-1.0); MONOCYTES % (AUTO) 12.3 % (3.0-13.0); NEUTROPHILS # (AUTO) 4.5 K/uL (1.8-7.7); NEUTROPHILS % (AUTO) 74.1 % (40.0-77.0); PLATELET COUNT (AUTO) 109 K/uL (130-400); RED BLOOD CELL COUNT(AUTO) 2.89 MIL/uL (4.50-6.20); RED CELL DISTRIBUTION WIDTH 19.9 % (11.0-15.5); WHITE BLOOD COUNT (AUTO) 6.1 K/uL (4.8-10.8)
[2023-02-26 10:50] LABS: INR 1.21 (0.85-1.15); PROTHROMBIN TIME 13.9 SEC (9.6-11.6)
[2023-02-26 10:52] LABS: ALBUMIN 1.8 g/dL (3.5-5.0); BILIRUBIN,TOTAL 1.1 mg/dL (0.2-1.0); POTASSIUM 3.2 mmol/L (3.5-5.1); TOTAL PROTEIN, SERUM 6.4 g/dL (6.0-8.3)
[2023-02-26 11:31] LABS: WBC MORPHOLOGY CONSISTENT W/DIFF
[2023-02-26 14:10] LABS: APPEARANCE BODY FLUID CLOUDY (CLEAR); COLOR,BODY FLUID ORANGE (LT YELLOW); SPECIMENTYPE,BODY FLUID ASCITES; TOTAL VOLUME,BODY FLUID 9700 mL
[2023-02-26 14:35] LABS: BODY FLUID RBC 6236 /cu. mm.; BODY FLUID WBC 291 /cu. mm.
[2023-02-26 16:02] LABS: BF EOSINOPHIL 2 %; BF LYMPHOCYTE 6 %; BF MACROPHAGE 3; BF MONOCYTE 2 %; BF OTHER CELLS 1; BF TOTAL CELLS COUNTED 100
== END | disposition home or self-care (01) ==
LOC: RAH 09:00
PROVIDERS: ATTEND Internal Medicine Gastroenterology
DX: K70.31 Alcoholic cirrhosis of liver with ascites (principal); E11.9 Type 2 diabetes mellitus without complications; K21.9 Gastro-esophageal reflux disease without esophagitis; M19.90 Unspecified osteoarthritis, unspecified site; M81.0 Age-related osteoporosis without current pathological fracture; Z98.890 Other specified postprocedural states; Z79.01 Long term (current) use of anticoagulants; Z79.899 Other long term (current) drug therapy
CPT/HCPCS: 49083; 80053; 85025; 89051; 85610; 85730; 36415; P9046 ×2; C1729

== ENCOUNTER → 2023-03-05 | Outpatient (CLI) | payer MEDICAID ==
[~2023-03-05] MED LIST changes: +LACT10SO9 PO
[2023-03-05 14:54] LABS: APPEARANCE BODY FLUID CLOUDY (CLEAR); COLOR,BODY FLUID ORANGE (LT YELLOW); SPECIMENTYPE,BODY FLUID ASCITES; TOTAL VOLUME,BODY FLUID 9800 mL
[2023-03-05 15:42] LABS: BODY FLUID RBC 437 /cu. mm.; BODY FLUID WBC 194 /cu. mm.
[2023-03-05 17:02] LABS: BF LYMPHOCYTE 21 %; BF TOTAL CELLS COUNTED 100
== END | disposition home or self-care (01) ==
LOC: RAH 09:32
PROVIDERS: ATTEND Internal Medicine Gastroenterology
DX: K70.31 Alcoholic cirrhosis of liver with ascites (principal); M19.90 Unspecified osteoarthritis, unspecified site; E11.9 Type 2 diabetes mellitus without complications; M81.0 Age-related osteoporosis without current pathological fracture; K21.9 Gastro-esophageal reflux disease without esophagitis; Z79.899 Other long term (current) drug therapy; Z98.890 Other specified postprocedural states; Z79.01 Long term (current) use of anticoagulants
CPT/HCPCS: 49083; 89051; P9046; C1729; 96365

== ENCOUNTER → 2023-03-13 | Outpatient (CLI) | payer MEDICAID ==
[2023-03-13 14:53] LABS: APPEARANCE BODY FLUID CLOUDY (CLEAR); COLOR,BODY FLUID LT YELLOW (LT YELLOW); SPECIMENTYPE,BODY FLUID ASCITES
[2023-03-13 14:54] LABS: TOTAL VOLUME,BODY FLUID 6000 mL
[2023-03-13 15:30] LABS: BODY FLUID RBC 3048 /cu. mm.; BODY FLUID WBC 80 /cu. mm.
[2023-03-13 16:08] LABS: BF LYMPHOCYTE 49 %; BF MACROPHAGE 5; BF MESOTHELIAL 2 %; BF MONOCYTE 4 %; BF OTHER CELLS 3; BF TOTAL CELLS COUNTED 100
== END | disposition home or self-care (01) ==
LOC: RAH 10:57
PROVIDERS: ATTEND Internal Medicine Gastroenterology
DX: K70.31 Alcoholic cirrhosis of liver with ascites (principal); K21.9 Gastro-esophageal reflux disease without esophagitis; M81.0 Age-related osteoporosis without current pathological fracture; B18.0 Chronic viral hepatitis B with delta-agent; I85.00 Esophageal varices without bleeding; D64.9 Anemia, unspecified; Z79.899 Other long term (current) drug therapy; Z98.890 Other specified postprocedural states; Z79.01 Long term (current) use of anticoagulants
CPT/HCPCS: 49083; 89051; P9046; C1729

== ENCOUNTER 2023-04-02 04:04 | Emergency (ER) | payer MEDICAID ==
[~2023-04-02 04:04] MED LIST changes: -ALBUMIN (HUMAN) 25% 200 ML IV SCH
[2023-04-02 05:18] LABS: BASOPHILS # (AUTO) 0.01 K/uL (0.00-0.20); BASOPHILS % (AUTO) 0.1 % (0.0-5.0); EOSINOPHILS # (AUTO) 0.01 K/uL (0.00-0.70); EOSINOPHILS % (AUTO) 0.1 % (0.0-8.0); HEMATOCRIT 24.6 % (42-54); IMMATURE GRANULOCYTE ABSOLUTE 0.07 K/uL (0-1); LYMPHOCYTES # (AUTO) 0.3 K/uL (1.0-4.8); LYMPHOCYTES % (AUTO) 2.8 % (21.0-51.0); MEAN CORPUSCULAR HEMOGLOBIN 25.6 pg (27.0-33.0); MEAN CORPUSCULAR HGB CONC 28.9 g/dL (32.0-36.0); MEAN CORPUSCULAR VOLUME 88.8 fL (79-99); MONOCYTES # (AUTO) 0.5 K/uL (0.1-1.0); MONOCYTES % (AUTO) 4.6 % (3.0-13.0); NEUTROPHILS % (AUTO) 91.8 % (40.0-77.0); PLATELET COUNT (AUTO) 87 K/uL (130-400); RED BLOOD CELL COUNT(AUTO) 2.77 MIL/uL (4.50-6.20); RED CELL DISTRIBUTION WIDTH 21.2 % (11.0-15.5); WHITE BLOOD COUNT (AUTO) 10.9 K/uL (4.8-10.8)
[2023-04-02] MEDS ORDERED: HYDROCODONE/ACETAMINOPHEN 5/325 MG TAB PO ONE (05:30)
[2023-04-02 05:32] LABS: INR 1.63 (0.85-1.15); PROTHROMBIN TIME 18.3 SEC (9.6-11.6)
[2023-04-02 05:33] LABS: PARTIAL THROMBOPLASTIN TIME 31.9 SEC (26.3-35.5)
[2023-04-02 05:35] LABS: WBC MORPHOLOGY CONSISTENT W/DIFF
[2023-04-02 06:29] LABS: CREATININE 0.8 mg/dL (0.5-1.5); POTASSIUM 3.3 mmol/L (3.5-5.1)
[2023-04-02 06:50] LABS: ALBUMIN 1.9 g/dL (3.5-5.0); TOTAL PROTEIN, SERUM 6.2 g/dL (6.0-8.3)
[2023-04-02] MEDS ORDERED: HYDROMORPHONE 0.5 MG SYG (0.5MG/0.5ML) IVP ONE (11:00)
[2023-04-02] MEDS ORDERED: SODIUM BICARB 50MEQ 50ML VIAL 50 ML ONE (12:19)
[2023-04-02] MEDS ORDERED: ALBUMIN (HUMAN) 25% 200 ML IV ONE (12:20)
[2023-04-02 14:14] VITALS: BP 121/74; PULSE 99; RESP 18; O2SAT 99
== END 2023-04-02 14:17 | disposition home or self-care (01) ==
LOC: EDH 04:04
DX: R18.8 Other ascites (principal); K74.60 Unspecified cirrhosis of liver; F17.200 Nicotine dependence, unspecified, uncomplicated; Z88.1 Allergy status to other antibiotic agents
CPT/HCPCS: 49083; 99285; 96365; 71045; 96375 ×2; 80053; 82140; 85025; 85610; 85730; 86850; 86900; 86901; 36415; P9046; J3490; J1170; C1729